=== PATIENT | female | born 1960 | race Caucasian/White ===

== ENCOUNTER 2022-02-11 13:20 | Emergency (ER) | payer BC, MEDICARE, OTHER ==
[~2022-02-11] VITALS: Ht 160 cm; Wt 74.0 kg
[2022-02-11] MEDS ORDERED: VALS1TAB67 PO (13:28)
[2022-02-11] MEDS ORDERED: AMLO1TAB25 PO (13:28)
[2022-02-11] MEDS ORDERED: ATOR1TAB19 PO (13:28)
[2022-02-11] MEDS ORDERED: FLUORESCEIN OPHTH 1 MG STRIP OD ONE (14:40)
[2022-02-11] MEDS ORDERED: PROPARACAINE 0.5% OPHTH SOL 15ML OD ONE (14:40)
[2022-02-11] MEDS ORDERED: ERYTHROMYCIN OPHTH OINT OD ONE (15:05)
[2022-02-11] MEDS ORDERED: ERYTOIN8 OD (15:18)
[2022-02-11 15:45] VITALS: BP 133/84
== END 2022-02-11 15:50 | disposition home or self-care (01) ==
LOC: M ED 13:20
DX: H10.211 Acute toxic conjunctivitis, right eye (principal); Z88.2 Allergy status to sulfonamides; Z88.8 Allergy status to other drugs, medicaments and biological substances